=== PATIENT | female | born 1990 | race Asian ===

== ENCOUNTER 2017-05-08 18:37 | Emergency (ER) | payer OTHER ==
[~2017-05-08] VITALS: Ht 160 cm; Wt 83.6 kg
[2017-05-08] MEDS ORDERED: IBUP200C5 PO (18:58)
[2017-05-08] MEDS ORDERED: HYDROCODONE/ACETAMINOPHEN 5-325 MG TABLET PO ONE (20:00)
[2017-05-08] MEDS ORDERED: ONDANSETRON HCL 4 MG TABLET PO ONE (20:00)
[2017-05-08 21:25] VITALS: BP 122/68
== END 2017-05-08 21:29 | disposition home or self-care (01) ==
LOC: EMS 18:41
DX: S90.32XA Contusion of left foot, initial encounter (principal); F17.210 Nicotine dependence, cigarettes, uncomplicated; W20.8XXA Other cause of strike by thrown, projected or falling object, initial encounter; Y93.89 Activity, other specified; Y92.89 Other specified places as the place of occurrence of the external cause; Y99.8 Other external cause status
CPT/HCPCS: 29515; 73630; 99284; Q0162